=== PATIENT | female | born 1935 | race Caucasian/White ===

== ENCOUNTER 2017-10-09 09:43 | Inpatient (IN) | payer OTHER ==
--- NOTE | 2017-10-09 10:05 | PDOC ---
History of Present Illness - General History Source: Patient, Care Provider (Home health aide) Exam Limitations: No Limitations - History of Present Illness Initial Comments: 10/09/17 11:01 The patient is a 81 year old female with a significant PMH of morbid obesity, cholecystectomy and thyroid surgery who presents to the emergency department s/ p being found on the ground of her assisted living home after 2 days. The patients aide reports she and the assisted living facility last contacted the patient on Saturday but did not hear from her since Saturday afternoon. She reports that assisted living staff went to check on the patient yesterday but could not gain access to the patients apartment or check on her condition as the door was locked and the TVs volume was high. The patients aide reports she requested the lock be cut today, after which staff found the patient at the foot of her couch on the ground, soiled. The patient denies any complaints at presentation. She is unclear about the details of the past 2 days. The patient denies chest pain, shortness of breath, headache and dizziness. Denies fever, chills, nausea, vomit, diarrhea and constipation. Denies dysuria, frequency, urgency and hematuria. Allergies: NKA Past surgical history: Cholecystectomy. Thyroid surgery. Social history: No reported cigarette, alcohol, or drug use. PCP: None reported. <Guru Jackson - Last Filed: 10/13/17 05:53> - General History Source: Patient, Care Provider Exam Limitations: No Limitations <Piedad Quinn - Last Filed: 10/15/17 09:51> - General Stated Complaint: FALL NIH Stroke Scale - Last Known Well Date/Time & Onset Date Last Known Well: 10/07/17 Time Last Known Well: 09:00 - Initial Evaluation Level of consciousness: Alert Ask patient the month and their age: Answers both correctly Ask patient to open & close eyes; make fist and let go: Obeys both correctly Best gaze (horizontal eye movement): Normal Visual field testing: No visual field loss Facial paresis (Show teeth/raise eyebrows/close eyes tight): Normal symmetrical movement Motor Function: Left Arm: Normal Motor Function: Right Arm: Normal (extends arm 90 (or 45) degrees for 10 seconds without drift Motor Function: Left Leg: No effort against gravity Motor Function: Right Leg: No effort against gravity Limb Ataxia: No ataxia Sensory(Use pinprick test arms,legs,trunk,face/side to side): Normal Best language (Describe picture, name items, read sentences): No Aphasia Dysarthria (read several words): Normal articulation Extinction and Inattention: No abnormality - Total Score NIH Stroke Scale Score: 6 <Piedad Quinn - Last Filed: 10/15/17 09:51> tPA Exclusion Checklist 0-3hr - Time Elapsed Date last known well: 10/07/17 Time last known well: 09:00 Elaspsed time: 8 Day(s) and 0 Hour(s) and 45 Minutes - Thrombolytic Therapy Candidate Is the patient eligible for Thrombolytic Therapy?: No - Exclusion Criteria 0-3hr SBP greater than 185 or DBP greater than 110mmHg despite tx: No Recent IC/spinal surgery,head trauma or stroke w/in last 3mo: No Hx of previous IC hemorrhage, IC neoplasm, AVM or aneurysm: No Active internal bleeding: No Blding diathesis(low plt ct, inc PTT,INR>1.7 or use of NOAC): No Symptoms suggest subarachnoid hemorrhage: No CT demonstrates multilobar infarct(>1/3 cerebral hemiphere): No Arterial puncture at noncompressible site in previous 7 days: No - Relative Exclusion Criteria 0-3h Life expectancy <1yr/severe co-morbid illness/WRITING MANAGER on admit: No : No Patient/family refused: No Rapid improvement: No Stroke severity too mild: No Recent acute NC (w/in previous 3 months): No Seizure at onset with postictal residual neuro impairments: No Major surgery or serious trauma w/in previous 14 days: No Recent GI or hemorrhage (w/in previous 21 days): No - Ineligibility reason(s) Reasons No tPA given: Outside of window - delayed arrival <Piedad Quinn - Last Filed: 10/15/17 09:51> Past History <Guru Jackson - Last Filed: 10/13/17 05:53> <Piedad Quinn - Last Filed: 10/15/17 09:51> - Past Medical History Allergies/Adverse Reactions: Allergies Allergy/AdvReac Type Severity Reaction Status Date / Time No Known Allergies Allergy Verified 10/09/17 10:30 Home Medications: Ambulatory Orders NK [No Known Home Medication] 10/09/17 Review of Systems - Review of Systems Able to Perform ROS?: Yes Comments:: 10/09/17 11:01 GENERAL/CONSTITUTIONAL: No fever or chills. No weakness. HEAD, EYES, EARS, NOSE AND THROAT: No change in vision. No ear pain or discharge. No sore throat. CARDIOVASCULAR: No chest pain or shortness of breath. RESPIRATORY: No cough, wheezing, or hemoptysis. GASTROINTESTINAL: No nausea, vomiting, diarrhea or constipation. GENITOURINARY: No dysuria, frequency, or change in urination. MUSCULOSKELETAL: No joint or muscle swelling or pain. No neck or back pain. SKIN: No rash NEUROLOGIC: No headache, vertigo, loss of consciousness, or change in strength/ sensation. ENDOCRINE: No increased thirst. No abnormal weight change. HEMATOLOGIC/LYMPHATIC: No anemia, easy bleeding, or history of blood clots. ALLERGIC/IMMUNOLOGIC: No hives or skin allergy. <Guru Jackson - Last Filed: 10/13/17 05:53> *Physical Exam - Vital Signs Last Vital Signs Temp Pulse Resp BP Pulse Ox 97.3 F L 112 H 18 135/82 100 10/09/17 10:00 10/09/17 10:00 10/09/17 10:00 10/09/17 10:00 10/09/17 10:00 - Physical Exam Comments: 10/09/17 11:01 GENERAL: Awake, alert, and fully oriented, in no acute distress HEAD: No signs of trauma EYES: PERRLA, EOMI, sclera anicteric, conjunctiva clear ENT: Auricles normal inspection, hearing grossly normal, nares patent, oropharynx clear without exudates. Moist mucosa NECK: Normal ROM, supple, no lymphadenopathy, JVD, or masses LUNGS: Breath sounds equal, clear to auscultation bilaterally. No wheezes, and no crackles HEART: (+) Tachycardic. Regular rate and rhythm, normal S1 and S2, no murmurs, rubs or gallops ABDOMEN: Soft, nontender, normoactive bowel sounds. No guarding, no rebound. No masses EXTREMITIES: Normal ROM in upper extremities, no edema. No clubbing or cyanosis. No cords, erythema, or tenderness. No tenderness to palpation in hip. NEUROLOGICAL: Cranial nerves II through XII grossly intact. Normal speech. SKIN:(+) Large erythematous rash in skin fold beneath right breast. (+) Erythematous rash in groin. (+) Skin breakdown on right buttock. Normal turgor. <Guru Jackson - Last Filed: 10/13/17 05:53> ED Treatment Course - LABORATORY CBC & Chemistry Diagram: 10/11/17 06:15 10/11/17 06:15 - ADDITIONAL ORDERS Additional order review: 10/09/17 10:45 RBC 5.52 H MCV 85.8 MCHC 31.7 L RDW 15.7 H MPV 9.2 Neutrophils % 89.7 H Lymphocytes % 3.5 L Monocytes % 6.5 Eosinophils % 0.1 Basophils % 0.2 <Guru Jackson - Last Filed: 10/13/17 05:53> - LABORATORY CBC & Chemistry Diagram: 10/15/17 06:00 10/15/17 06:00 - RADIOLOGY Radiology Studies Ordered: Category Date Time Status CERVICAL SPINE CT W/O CONTR [CT] Stat CT Scan 10/09/17 10:[address] WITHOUT CONTRAST [CT] Stat CT Scan 10/09/17 10:04 Ordered <Piedad Quinn - Last Filed: 10/15/17 09:51> Medical Decision Making - Critical Care Time Total Critical Care Time (minutes): 60 Critical Care Statement: The care of this patient involved high complexity decision making to prevent further life threatening deterioration of the patient 's condition and/or to evaluate & treat vital organ system(s) failure or risk of failure. 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 because no one has been able to see this patient since Saturday and she requested that the chain on the door be cut Upon making entry to the home, the patient was found on the ground Pt has soiled herself On examination The patient states she has no pain at all She also states that she did not fall Tachcycardiac, regular Lungs are clear No abdominal tenderness Stool noted in patient's undergarments Inflammed erythematous skin noted in patient's skin folds Right buttock abrasion, skin break down noted No lower extremity edema or deformities Pt moves both upper extremities (when pt was asked to move her legs and could not, pt moved both upper extremities) Does not move lower extremities DD: Mechanical fall from standing, ACS, Arrhythmia, anemia ---> fall Evaluate for head trauma, c spine injury, hip fracture Will do: Labs CT Head and C spine EKG IV fluids for patient's tachycardia PT consult Anticipate admission 10/09/17 11:26 EKG: Afib,rate of 122 bpm, axis nml, t wave flattening, no st elevations or depressions, baseline artifact Will hold on anticoagulation until CT imaging done Will give IVF and Cardizem for tachycardia 10/09/17 13:36 Laboratory Tests 10/09/17 10/09/17 10/09/17 10:45 10:45 10:45 WBC 16.2 H Hgb 15.0 Hct 47.3 H Plt Count 236 Neutrophils % 89.7 H Lymphocytes % 3.5 L PT with INR 13.30 H INR 1.18 H Sodium 142 Potassium 4.4 Chloride 105 Carbon Dioxide 30 BUN 28 H Creatinine 0.9 Random Glucose 118 H Creatine Kinase 886 H Creatine Kinase Index 1.0 CK-MB (CK-2) 9.190 H Troponin I < 0.02 10/09/17 13:37 CT: Mild lucency in the Right MCA territory Can not rule out CVA Pt complained of headache Given Tylenol IV 10/09/17 13:47 Case reviewed with LENS GRINDER Burak Will admit to tele Consult to Dr Navarro Consult to Dr Shi can not anticoagulate for Afib if CVA is acute Clinical Impression: Fall, initial presentation Mild rhabdomyolisis, initial presentation New onset Afib with RVR, initial presentation ? possible CVA <Piedad Quinn - Last Filed: 10/15/17 09:51> *DC/Admit/Observation/Transfer - Attestations Scribe Attestion: 10/09/17 11:01 Documentation prepared by Guru Jackson, acting as medical payment poster for Piedad Quinn MD. <Guru Jackson - Last Filed: 10/13/17 05:53> - Discharge Dispostion Admit: Yes <Piedad Quinn - Last Filed: 10/15/17 09:51> Diagnosis at time of Disposition: New onset a-fib, Fall - Discharge Dispostion Condition at time of disposition: Stable
[2017-10-09] MEDS ORDERED: SODIUM CHLORIDE 1,000 ML IV STA (10:39)
[2017-10-09 10:53] LABS: BASO % 0.2 % (0-2.0); EOS % 0.1 % (0-4.5); HEMATOCRIT 47.3 % (32.4-45.2); LYMPH % 3.5 % (8-40); MCH 27.2 pg (25.7-33.7); MCHC 31.7 g/dl (32.0-36.0); MEAN CELL VOLUME 85.8 fl (80-96); MEAN PLT VOLUME 9.2 fl (7.5-11.1); MONO % 6.5 % (3.8-10.2); NEUT % 89.7 % (42.8-82.8); PLATELET COUNT 236 K/MM3 (134-434); RBC 5.52 M/mm3 (3.60-5.2); RDW 15.7 % (11.6-15.6); WHITE BLOOD COUNT 16.2 K/mm3 (4.0-10.0)
[2017-10-09 11:07] LABS: INR 1.18 (0.82-1.09); PROTHROMBIN TIME (PATIENT) 13.3 SEC (9.98-11.88)
[2017-10-09] MEDS ORDERED: dilTIAZem HCL 50 MG/10 ML - 10 ML VIAL IVPUSH ONE (11:22)
[2017-10-09 11:47] LABS: ALBUMIN 3.3 g/dl (3.4-5.0); ALK PHOS 112 U/L (45-117); ANION GAP 7 (8-16); BILIRUBIN,TOTAL 1.1 mg/dL (0.2-1.0); BLOOD UREA NITROGEN 28 mg/dL (7-18); CALCIUM 8.5 mg/dL (8.5-10.1); CHLORIDE 105 mmol/L (98-107); CO2 30 mmol/L (21-32); CREATININE 0.9 mg/dL (0.55-1.02); GLUCOSE,RANDOM 118 mg/dL (74-106); SGPT/ALT 33 U/L (12-78); SODIUM 142 mmol/L (136-145); TOT PROT 6.8 g/dl (6.4-8.2)
[2017-10-09 12:04] LABS: POTASSIUM 4.4 mmol/L (3.5-5.1); SGOT/AST 126 U/L (15-37)
--- NOTE | 2017-10-09 12:34 | EKG ---
Test Reason : Blood Pressure : / mmHG Vent. Rate : 122 BPM Atrial Rate : 120 BPM P-R Int : 000 ms QRS Dur : 086 ms QT Int : 282 ms P-R-T Axes : 000 011 111 degrees QTc Int : 401 ms POOR DATA QUALITY, INTERPRETATION MAY BE ADVERSELY AFFECTED ATRIAL FIBRILLATION WITH RAPID VENTRICULAR RESPONSE CANNOT RULE OUT ANTERIOR INFARCT , AGE UNDETERMINED ABNORMAL ECG NO PREVIOUS ECGS AVAILABLE Confirmed by WOODROW CABRALES, RUSS ([id number]) on 10/09/2017 12:34:32 PM Referred By: Confirmed By:RUSS TROY MD
[2017-10-09] MEDS ORDERED: dilTIAZem HCL 125 MG/25 ML - 25 ML VIAL ONE (13:01)
[2017-10-09] MEDS ORDERED: ACETAMINOPHEN 1000 MG/100 ML VIAL (NON FORMULARY) IVPB ONE (13:33)
[2017-10-09] MEDS ORDERED: ACETAMINOPHEN INJECTION 100 ML IVPB ONE (13:33)
--- NOTE | 2017-10-09 13:34 | HP ---
CHIEF COMPLAINT: On floor of apartment x 2 days PCP: None HISTORY OF PRESENT ILLNESS: The patient is a 81 year-old female with a significant PMH of morbid obesity. She has not seen a medical provider in over 40 years per her [id number] with whom this instructional writer spoke. Patient is a poor historian and the following is obtained from the medical record: patient was brought by EMS to the ED after being found on the floor of her senior housing apartment. The patient's "aide" ( does not have a home health aide per [id number]) reported she and the management of the facility last contacted the patient on Saturday morning (10/07/17 ) but did not hear from her since Saturday afternoon. The staff went to check on the patient yesterday (10/08/17) but could not gain access to the patient apartment or check on her condition as the door was locked and the TV volume was high. The "aide" reports she requested the lock be cut today, after which staff found the patient on the floor, soiled. The patient has no recollection of these events, is unaware she was on the floor for a prolonged period. Patient voices no physical complaints. Denies headache, dizziness, vision changes; denies chest pain, palpitations, SOB, MARKS, lower extremity edema; denies dysuria, frequency, urgency. Denies bleeding of any kind. ER course was notable for: (1) ECG afib @ 122bpm (2) CT head suspicious for acute/subacute left MCA infarct (3) diltiazem IVP 10mg x 1; Tylenol IVPB 1g Recent Travel: No PAST MEDICAL HISTORY: Morbid obesity PAST SURGICAL HISTORY: Cholecystectomy Thyroid surgery Social History: Smoking: no Alcohol: no Drugs: no Family History: Allergies No Known Allergies Allergy (Verified 10/09/17 10:30) HOME MEDICATIONS: Home Medications Medication Instructions Recorded NK [No Known Home Medication] 10/09/17 REVIEW OF SYSTEMS Unable to obtain from patient PHYSICAL EXAMINATION Vital Signs - 24 hr 10/09/17 10/09/17 10:00 13:09 Temperature 97.3 F L Pulse Rate 112 H Pulse Rate [ 107 H Apical] Respiratory 18 24 Rate Blood Pressure 135/82 Blood Pressure 148/82 [Right Arm] O2 Sat by Pulse 100 2 L Oximetry (%) GENERAL: Awake, A&O x 1. In no acute distress. Morbidly obese, estimate ~500 pounds. NEUROLOGICAL: Flattening of the right nasolabial fold. EOMI. Normal speech. Moves all extremities freely. HEAD: Normal with no signs of trauma. EYES: Pupils equal, round and reactive to light, extraocular movements intact, sclera anicteric, conjunctiva clear. No lid lag. EARS, NOSE, THROAT: Edentulous. Ears normal, nares patent, oropharynx clear without exudates. Dry mucous membranes. NECK: Normal range of motion, no JVD LUNGS: Distant breath sounds due to body habitus. HEART: Irregular, S1, S2 ABDOMEN: Enormous pannus; soft MUSCULOSKELETAL: Unable to assess, resists exam UPPER EXTREMITIES: 2+ pulses, warm, well-perfused. No cyanosis. No clubbing. No peripheral edema. LOWER EXTREMITIES: 2+ pulses, warm, well-perfused. No calf tenderness. No peripheral edema. SKIN: Right buttock: two Stage II pressure ulcers, one superior, one inferior Left buttock: two Stage II pressure Laboratory Results - last 24 hr 10/09/17 10/09/17 10/09/17 10:45 10:45 10:45 WBC 16.2 H RBC 5.52 H Hgb 15.0 Hct 47.3 H MCV 85.8 MCH 27.2 MCHC 31.7 L RDW 15.7 H Plt Count 236 MPV 9.2 Neutrophils % 89.7 H Lymphocytes % 3.5 L Monocytes % 6.5 Eosinophils % 0.1 Basophils % 0.2 PT with INR 13.30 H INR 1.18 H Sodium 142 Potassium 4.4 Chloride 105 Carbon Dioxide 30 Anion Gap 7 L BUN 28 H Creatinine 0.9 Creat Clearance w eGFR 59.80 Random Glucose 118 H Calcium 8.5 Total Bilirubin 1.1 H AST 126 H ALT 33 Alkaline Phosphatase 112 Creatine Kinase 886 H Creatine Kinase Index 1.0 CK-MB (CK-2) 9.190 H Troponin I < 0.02 Total Protein 6.8 Albumin 3.3 L Imaging 10/09 CT head: mild lucency left MCA suspicious for acute/subacute infarct 10/09 CT c-spine: C6-C7 moderate left paracentral disc herniation and posterior spur formation likely impinging cord 10/09 CXR: unremarkable 10/09 Xray hip/pelvis: ASSESSMENT/PLAN: 81 year old female with a significant PMH of morbid obesity, cholecystectomy and thyroid surgery found on floor of apartment after two days. Morbid obesity --needs accurate weight Unwitnessed fall --imaging negative for fractures Atrial fibrillation with RVR --newly diagnosed --cardizem 30mg q6h --no anticoagulation for now pending stroke workup, discussed with Dr. Jeffries ; he will view CT images this evening and advise --cardiology consult Syncope r/o left MCA infarct cardiac: --serial troponins and ECGs --Echo --US carotids ordered neuro: --CT head suspicious for left MCA acute/subacute infarct --MRI/MRA brain with and w/o contrast ordered but machine may not accommodate patient's body habitus --neuro consult vascular: --toes are slightly dusky and cool, concern for emboli although DP pulses are 2+ easily palpable; concern for DVT --b/l LE arterial and vascular duplex studies ordered --vascular consult Rhabdomyolysis --CPK 886-->915 --renal function stable --IV fluids Leukocytosis --may be reactive --afebrile, no clinical signs of infection --no antibiotics for now Cervical disc herniation --workup when more stable; may be chronic? 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 Consider transferring to [facility] where there is physical therapy for bariatric patients. Dispo: Patient has two sons. Deya Macias ([phone]), her daughter in law , lives in [place] and will be flying to [place]. Patient's POA and HCP is a friend, Linda Julio who lives on [address] in [place] ([phone]). Ms. Macias has had conversations with patient in past in which patient indicated she was DNR, but she does not have a copy of any paperwork. . Sumanth will need to be contacted. In terms of discharge, Ms. Macias last visited patient in her apartment in July 2017. The apartment was covered in urine and feces. The patient has not used a toilet in over 20 years. She voids and defecates on towels. Food is delivered and she is able to eat microwaveable meals. Friends deliver food as well. Advised Ms. Macias that patient will not be able to return to her apartment and she should start thinking about placement. Visit type - Emergency Visit Emergency Visit: Yes ED Registration Date: 10/09/17 Care time: The patient presented to the Emergency Department on the above date and was hospitalized for further evaluation of their emergent condition. - New Patient This patient is new to me today: Yes Date on this admission: 10/09/17 - Critical Care Critical Care patient: Yes Total Critical Care Time (in minutes): 90 Critical Care Statement: The care of this patient involved high complexity decision making to prevent further life threatening deterioration of the patient 's condition and/or to evaluate & treat vital organ system(s) failure or risk of failure.
[2017-10-09] MEDS ORDERED: SODIUM CHLORIDE 500 ML IV STA (15:07)
--- NOTE | 2017-10-09 16:51 | CON.CARD ---
Consult Consult Specialty:: Cardiology Referred by:: kenneth Sumner Reason for Consultation:: afib - History of Present Illness Chief Complaint: found on the floor History of Present Illness: 81 year old with a pmhx of obesity, cholecystectomy, and thyroid surgery comes to ER after being found on the floor for possibly 2 days. Patient is confused and thinks she is at home and cannot give assesment of what happened. Unclear what led to her ending up on the floor. She denies any chest pain, palpitations , or sob. +pain to LE. Noted to have elevated CPK EKG with afib VR 122bpm CT head unclear if CVA or artifact in left MCA territory. - History Source History Provided By: Family Member, Medical Record - Alcohol/Substance Use Hx Alcohol Use: No - Smoking History Smoking history: Never smoked Have you smoked in the past 12 months: No Home Medications - Allergies Allergies/Adverse Reactions: Allergies Allergy/AdvReac Type Severity Reaction Status Date / Time No Known Allergies Allergy Verified 10/09/17 10:30 - Home Medications Home Medications: Ambulatory Orders NK [No Known Home Medication] 10/09/17 Vital Signs: Vital Signs Temperature 97.3 F L 10/09/17 10:00 Pulse Rate 118 H 10/09/17 15:39 Respiratory Rate 18 10/09/17 15:39 Blood Pressure 144/88 10/09/17 15:39 O2 Sat by Pulse Oximetry (%) 99 10/09/17 15:39 Constitutional: Yes: Other (confused) Neck: Yes: Supple Respiratory: Yes: CTA Bilaterally Gastrointestinal: Yes: Soft Cardiovascular: Yes: Pulse Irregular JVD: No Carotid Bruit: No PMI: Non-Displaced Heart Sounds: Yes: S1, S2 Extremities: Yes: Other (bluish, cold toes b/l feet but greater on left. +1 DP' s). No: WNL Edema: LLE: 1+, RLE: 1+ - Other Data Labs, Other Data: CBC, BMP 10/09/17 10:45 10/09/17 10:45 INR, PTT INR 1.18 (0.82-1.09) H 10/09/17 10:45 Troponin, BNP 10/09/17 10/09/17 10:45 14:08 Troponin I < 0.02 < 0.02 Troponin, BNP 10/09/17 10/09/17 10:45 14:08 Troponin I < 0.02 < 0.02 Imaging - Results Chest X-ray: Report Reviewed EKG: Image Reviewed Assessment/Plan 81 year old with a pmhx of obesity, cholecystectomy, and thyroid surgery comes to ER after being found on the floor for possibly 2 days. Patient is confused and thinks she is at home and cannot give assesment of what happened. Unclear what led to her ending up on the floor. She denies any chest pain, palpitations , or sob. +pain to LE. Noted to have elevated CPK EKG with afib VR 122bpm CT head unclear if CVA or artifact in left MCA territory. 1) Afib unclear if any history of Afib Would treat with heparin IV if no concern for acute stroke and no contraindication. IVF's given dehydration and will likely assist with HR. If HR remains elevated than, diltiazem 30mg po q6 Echocardiogram lytes and tfts -On exam, patient with bluish, cold toes on both feet greater on left. Informed ER attending. Would have surgery/vascular evaluate to ensure no arterial emboli and if there are than need to consider AC.
[2017-10-09] MEDS ORDERED: HEPARIN NA (PORCINE) 5,000 UNITS/ML 1ML VIAL SQ SCH (18:00)
[2017-10-09 18:09] VITALS: BMI 62.9
[2017-10-09 18:27] LABS: ALLENS TEST POSITIVE; ARTERIAL BLOOD GAS BASE EXCESS 1.5 meq/l (-2-2); ARTERIAL BLOOD GAS PCO2 45.8 mmHg (35-45); ARTERIAL BLOOD GAS PO2 88.1 mmHg (68-100)
--- NOTE | 2017-10-09 21:20 | CON.NEURO ---
Consult Reason for Consultation:: Possible stroke - History of Present Illness History of Present Illness: The patient is a 81 year-old female with a significant PMH of morbid obesity. She has not seen a medical provider in over 40 years per her [id number] with whom this global technical writer spoke. Patient is a poor historian and the following is obtained from the medical record: patient was brought by EMS to the ED after being found on the floor of her senior housing apartment. The patient's "aide" ( does not have a home health aide per [id number]) reported she and the management of the facility last contacted the patient on Saturday morning (10/07/17 ) but did not hear from her since Saturday afternoon. The staff went to check on the patient yesterday (10/08/17) but could not gain access to the patient apartment or check on her condition as the door was locked and the TV volume was high. The "aide" reports she requested the lock be cut today, after which staff found the patient on the floor, soiled. The patient has no recollection of these events, is unaware she was on the floor for a prolonged period. Patient voices no physical complaints. Denies headache, dizziness, vision changes; denies chest pain, palpitations, SOB, MARKS, lower extremity edema; denies dysuria, frequency, urgency. Denies bleeding of any kind. -Ms. Kenyon reports she has no recollection of events, was able to ambulate at home and that she is having some difficulty with comprehension when i pointed this out to her. Denies all other neurologic complaints, states"i dont know why i cant mopve my legs. Denies urinary incontinence. ER course was notable for: (1) ECG afib @ 122bpm (2) CT head suspicious for acute/subacute left MCA infarct (3) diltiazem IVP 10mg x 1; Tylenol IVPB 1g - History Source History Provided By: Patient - Alcohol/Substance Use Hx Alcohol Use: No - Smoking History Smoking history: Never smoked Have you smoked in the past 12 months: No Home Medications - Allergies Allergies/Adverse Reactions: Allergies Allergy/AdvReac Type Severity Reaction Status Date / Time No Known Allergies Allergy Verified 10/09/17 10:30 - Home Medications Home Medications: Ambulatory Orders NK [No Known Home Medication] 10/09/17 Physical Exam-Neuro Vital Signs: Vital Signs Temperature 98.1 F 10/09/17 20:53 Pulse Rate 115 H 10/09/17 20:53 Respiratory Rate 22 10/09/17 20:53 Blood Pressure 153/98 10/09/17 20:53 O2 Sat by Pulse Oximetry (%) 100 10/09/17 20:53 Labs: CBC, BMP 10/09/17 10:45 10/09/17 10:45 INR, PTT INR 1.18 (0.82-1.09) H 10/09/17 10:45 - Neuro Exam Level Of Consciousness: Yes: Alert, Oriented to Person, Oriented to Place (not oriented to time/day/date) Eyes: Yes: APOLLO Speech: Wernicke's Aphasia (Mild impaired comprehension+ paraphasic errors-she has a mild sensory aphasia) Dominant Hand: Right Mini Mental Exam: Impaired attention/concentration Cranial Nerves II-XII Intact: Yes (mild diminished right NLF) Babinski: Present (bilateral upgpoing toes) Response to light touch: Normal Response to pain prick: Normal (rest of sensory modalities not tested) Coordination: Normal: Finger to Nose (normal F-N) Motor Strength: 1/5: Left Leg, Right Leg, 5/5: Left Arm, Right Arm (No drift) Gait: Other (unable to stand) Imaging - Results X-ray: Report Reviewed (Imaging 10/09 CT head: mild lucency left MCA suspicious for acute/subacute infarct 10/09 CT c-spine: C6-C7 moderate left paracentral disc herniation and posterior spur formation likely impinging cord 10/09 CXR: unremarkable -To my exam CT head has patchy hypodensities of indeterminate age in left parietal region.) Assessment/Plan Pt. found on floor, with new onset Afib and possible left MCA territory infarct and has paraparesis that is new. Given new onset Afib the left parietal hypodensity is most likely a new infarct, she has minimal clinical findings ascribable to this vascular distribution-(Wernickes aphasia, mild).The infarct may be radiologically large to preclude anticoagulation, due to her habitus she cannot have a MRI, would repeat CT head now to gauge the extent ofpossible stroke-if it is large would wait to a/c, if not would proceed with a/c. Paraparesis and urinary incontinence, bilateral upgoing toes-?? ant. spinal artery occlusion, rhabdomyolysis/compartment syndrome(less likely)-. Suggest: Cont. ASA 325mg x 1 than 81mg daily if no contraindications Repeat CT head now Carotid duplex as planned a/c with heparin if not contraindicated after CT head. Thank you, Eliel Jeffries MD [phone]
--- NOTE | 2017-10-09 22:42 | PN ---
Progress Note (short form) - Note Progress Note: Pt. is not c/o neck/back pain but given paraparesis/brisk knee jerks and upgoing toes/incontinence would obtain CT C/T spine to r/o com[pressive myelopathy
[2017-10-09] MEDS ORDERED: ASPIRIN 325 MG TABLET PO ONE (22:45)
[2017-10-09] MEDS ORDERED: AMMONIUM LACTATE 12% LOTION 225 GM BOTTLE TP PRN (23:44)
[2017-10-10] MEDS ORDERED: PT OWN MED DRAWER 7, Y5N ONE ×2 (06:00→10:39)
[2017-10-10] MEDS: dilTIAZem HCL 30 MG TABLET (FP) PO SCH ×2 (06:03)
[2017-10-10 06:42] LABS: BASO % 0.4 % (0-2.0); EOS % 0.9 % (0-4.5); HEMATOCRIT 41.3 % (32.4-45.2); HEMOGLOBIN 13.4 GM/dL (10.7-15.3); LYMPH % 9.5 % (8-40); MCHC 32.4 g/dl (32.0-36.0); MEAN CELL VOLUME 86.2 fl (80-96); MEAN PLT VOLUME 9.3 fl (7.5-11.1); MONO % 10.2 % (3.8-10.2); PLATELET COUNT 211 K/MM3 (134-434); RBC 4.79 M/mm3 (3.60-5.2); RDW 16.1 % (11.6-15.6); WHITE BLOOD COUNT 10.8 K/mm3 (4.0-10.0)
[2017-10-10 07:12] LABS: CHLORIDE 109 mmol/L (98-107); POTASSIUM 4.3 mmol/L (3.5-5.1); SODIUM 144 mmol/L (136-145)
--- NOTE | 2017-10-10 07:17 | HOSP ---
Physical Examination Vital Signs: Vital Signs Temperature 98.3 F 10/10/17 02:14 Pulse Rate 102 H 10/10/17 02:14 Respiratory Rate 22 10/10/17 02:14 Blood Pressure 142/71 10/10/17 02:14 O2 Sat by Pulse Oximetry (%) 98 10/09/17 23:00 Hospitalist Encounter Assessment: Had discussion with Dr. Jeffries regarding CT results. Given size of infarct on CT he would not advise anticoagulation at this time, only ASA. He recommended ASA 325mg now followed by ASA 81 daily. He also recommended CT of cspine and tspine.
[2017-10-10 07:23] LABS: ALBUMIN 2.7 g/dl (3.4-5.0); ALK PHOS 87 U/L (45-117); ANION GAP 6 (8-16); BILIRUBIN,TOTAL 0.9 mg/dL (0.2-1.0); BLOOD UREA NITROGEN 24 mg/dL (7-18); CALCIUM 7.7 mg/dL (8.5-10.1); CO2 29 mmol/L (21-32); CREATININE 0.6 mg/dL (0.55-1.02); GLUCOSE,RANDOM 85 mg/dL (74-106); PHOSPHOROUS 3.5 mg/dL (2.5-4.9); SGOT/AST 101 U/L (15-37); SGPT/ALT 28 U/L (12-78); TOT PROT 5.5 g/dl (6.4-8.2)
--- NOTE | 2017-10-10 08:34 | PN ---
Progress Note (short form) - Note Progress Note: Ms. Tan today has a more prominent aphasia with fluent speech, impaired comprehernsion and paraphasic errors. She denies back pain, has urinary incontinence and 1/5 weakness in both legs. Would hold a/c for now given evolving, now clinically large right MCA territory infarct.+ bilateral dorsalis pedis pulses. -Await CT C/T spine-no explanation for paraparesis?/ ant. spinal artery occlusion.
[2017-10-10] MEDS: NYSTATIN POWDER 100,000 UNITS/GM - 15 GM TOPICAL POWDER TP SCH (11:04)
[2017-10-10] MEDS: NYSTATIN 100,000 UNIT/GM TOPICAL CREAM 15 GM TUBE TP SCH ×2 (11:05→21:49)
[2017-10-10] MEDS: ASPIRIN COATED 81 MG TABLET.EC PO SCH (11:06)
--- NOTE | 2017-10-10 11:47 | EKG ---
Test Reason : Blood Pressure : / mmHG Vent. Rate : 104 BPM Atrial Rate : 106 BPM P-R Int : 000 ms QRS Dur : 070 ms QT Int : 342 ms P-R-T Axes : 000 000 262 degrees QTc Int : 449 ms ATRIAL FIBRILLATION WITH RAPID VENTRICULAR RESPONSE NONSPECIFIC ST AND T WAVE ABNORMALITY ABNORMAL ECG WHEN COMPARED WITH ECG OF 09-OCT-2017 11:20, NONSPECIFIC T WAVE ABNORMALITY, WORSE IN ANTERIOR LEADS Confirmed by PAT CABRALES, ROHITH ([id number]) on 10/10/2017 11:46:50 AM Referred By: Confirmed By:ROHITH STEWART MD
--- NOTE | 2017-10-10 12:24 | PN ---
Progress Note (short form) - Note Progress Note: Subjective: The patient was seen and examined at the bedside, she reports feeling more alert today. She states she feeling "really good" Current Medications Generic Name Dose Route Start Last Admin Trade Name Chandrika PRN Reason Stop Dose Admin Aspirin 81 mg 10/10/17 10:00 10/10/17 11:06 Ecotrin - PO 81 mg DAILY KELLEN Administration Diltiazem HCl 30 mg 10/10/17 00:00 10/10/17 06:03 Cardizem - PO 30 mg Q6HPO KELLEN Administration Lactic Acid 1 applic 10/09/17 23:44 10/10/17 11:06 Lac-Hydrin 12 TP 1 applic BID PRN Administration DRY SKIN Nystatin 1 applic 10/10/17 10:00 10/10/17 11:05 Mycostatin Cream - TP 1 applic BID KELLEN Administration Nystatin 1 applic 10/10/17 10:00 10/10/17 11:04 Nystop Powder - TP 1 applic DAILY KELLEN Administration Objective: Vital Signs Period Temp Pulse Resp BP Sys/Garcia Pulse Ox Last 24 Hr 98.1 F-98.6 F 102-118 18-24 142-160/71-98 2-100 Physical Exam: General: NAD, A&Ox (2-3, self, place, time-knows 2017, thinks it is November) Lungs: Decreased breath sounds anteriorly Heart: Irregular, S1S2 Abd: Refused exam Ext: B/l lower extremity edema with venous changes CBCD WBC 10.8 K/mm3 (4.0-10.0) H D 10/10/17 05:40 RBC 4.79 M/mm3 (3.60-5.2) 10/10/17 05:40 Hgb 13.4 GM/dL (10.7-15.3) D 10/10/17 05:40 Hct 41.3 % (32.4-45.2) 10/10/17 05:40 MCV 86.2 fl (80-96) 10/10/17 05:40 MCHC 32.4 g/dl (32.0-36.0) 10/10/17 05:40 RDW 16.1 % (11.6-15.6) H 10/10/17 05:40 Plt Count 211 K/MM3 (134-434) 10/10/17 05:40 MPV 9.3 fl (7.5-11.1) 10/10/17 05:40 CMP Sodium 144 mmol/L (136-145) 10/10/17 05:40 Potassium 4.3 mmol/L (3.5-5.1) 10/10/17 05:40 Chloride 109 mmol/L (98-107) H 10/10/17 05:40 Carbon Dioxide 29 mmol/L (21-32) 10/10/17 05:40 Anion Gap 6 (8-16) L 10/10/17 05:40 BUN 24 mg/dL (7-18) H 10/10/17 05:40 Creatinine 0.6 mg/dL (0.55-1.02) 10/10/17 05:40 Creat Clearance w eGFR > 60 (>60) 10/10/17 05:40 Random Glucose 85 mg/dL (74-106) 10/10/17 05:40 Calcium 7.7 mg/dL (8.5-10.1) L 10/10/17 05:40 Total Bilirubin 0.9 mg/dL (0.2-1.0) 10/10/17 05:40 AST 101 U/L (15-37) H 10/10/17 05:40 ALT 28 U/L (12-78) 10/10/17 05:40 Alkaline Phosphatase 87 U/L (45-117) 10/10/17 05:40 Total Protein 5.5 g/dl (6.4-8.2) L 10/10/17 05:40 Albumin 2.7 g/dl (3.4-5.0) L 10/10/17 05:40 CARDIAC ENZYMES Creatine Kinase 502 IU/L (26-192) H 10/10/17 05:40 Troponin I < 0.02 ng/ml (0.00-0.05) 10/09/17 14:08 Assessment: This is an 81 year old female with PMHx of morbid obesity, cholecystectomy, thyroid surgery, who presented to the ED after being found on the floor of her apartment for 2 days. Plan: 1) Large right MCA territory infarct - CT head x2: possible diminished corticomedullary differentiation within the left frontoparietal lobe at the mid convexity level - Unable to perform MRI due to patient's body habitus - Continue ASA 81mg daily - Will hold off on anticoagulation at this time given how large infarct is - Carotid doppler: limited exam. Left internal and external carotid arteries could not be well visualized. The extracranial right carotid artery with no doppler evidence of high grade stenosis. Patent right vertebral artery. Left vertebral body could not be definitely visualized - ECHO: normal LV size and function. Left atrium is moderately dilated. Right atrium is moderately dilated. Moderate TR. RVSP is elevated. - F/u swallow evaluation - PT - Appreciate neuro consult - Appreciate cardiology consult 2) New onset a.fib - Ideally would need anticoagulation, however contraindicated now per neuro - Continuous cardiac monitoring - Continue cardizem 3) Rhabdomyolysis - Continue to monitor - Trending down - Hold statin until CPK wnl 4) Slightly dusky, cool toes - B/l lower extremity doppler negative for DVT - B/l lower extremity arterial duplex limited with no evidence of occlusions or hemodynamically significant stenoses - F/u vascular surgery consult 5) F/E/N: - Swallow eval per CVA protocol - Sodium controlled diet - Monitor electrolytes 6) Prophylaxis: - Hold all chemical anticoagulation at this time per neurology 7) Dispo: - Requires continued inpatient care CODE STATUS: FULL CODE Visit type - Emergency Visit Emergency Visit: Yes ED Registration Date: 10/09/17 Care time: The patient presented to the Emergency Department on the above date and was hospitalized for further evaluation of their emergent condition. - New Patient This patient is new to me today: Yes Date on this admission: 10/10/17 - Critical Care Critical Care patient: No
--- NOTE | 2017-10-10 13:14 | PN ---
Progress Note, Physician Chief Complaint: Tele: afib rates around 100bpm No chest pain, sob, or palpitations Monitoring for CVA History of Present Illness: 81 year old with a pmhx of obesity, cholecystectomy, and thyroid surgery comes to ER after being found on the floor for possibly 2 days. Patient is confused and thinks she is at home and cannot give assesment of what happened. Unclear what led to her ending up on the floor. She denies any chest pain, palpitations , or sob. +pain to LE. Noted to have elevated CPK EKG with afib VR 122bpm CT head unclear if CVA or artifact in left MCA territory. - Current Medication List Current Medications: Active Medications Aspirin (Ecotrin -) 81 mg PO DAILY [facility] Last Admin: 10/10/17 11:06 Dose: 81 mg Diltiazem HCl (Cardizem -) 30 mg PO Q6HPO [facility] Last Admin: 10/10/17 06:03 Dose: 30 mg Lactic Acid (Lac-Hydrin 12) 1 applic TP BID PRN PRN Reason: DRY SKIN Last Admin: 10/10/17 11:06 Dose: 1 applic Nystatin (Mycostatin Cream -) 1 applic TP BID [facility] Last Admin: 10/10/17 11:05 Dose: 1 applic Nystatin (Nystop Powder -) 1 applic TP DAILY [facility] Last Admin: 10/10/17 11:04 Dose: 1 applic - Objective Vital Signs: Vital Signs Temperature 98.6 F 10/10/17 12:58 Pulse Rate 113 H 10/10/17 12:58 Respiratory Rate 22 10/10/17 12:58 Blood Pressure 142/90 10/10/17 12:58 O2 Sat by Pulse Oximetry (%) 98 10/09/17 23:00 Constitutional: Yes: No Distress Neck: Yes: Supple Cardiovascular: Yes: Pulse Irregular, S1, S2 Respiratory: Yes: CTA Bilaterally Gastrointestinal: Yes: Soft Extremities: Yes: Other (Bluishness of feet much improved) Edema: LLE: Trace, RLE: Trace Labs: CBC, BMP 10/10/17 05:40 10/10/17 05:40 INR, PTT INR 1.18 (0.82-1.09) H 10/09/17 10:45 Assessment/Plan 81 year old with a pmhx of obesity, cholecystectomy, and thyroid surgery comes to ER after being found on the floor for possibly 2 days. Patient is confused and thinks she is at home and cannot give assesment of what happened. Unclear what led to her ending up on the floor. She denies any chest pain, palpitations , or sob. +pain to LE. Noted to have elevated CPK EKG with afib VR 122bpm CT head unclear if CVA or artifact in left MCA territory. 1) Afib unclear if any history of Afib Given recent L MCA stroke anticoagulation on hold. Start on AC when ok with neurology HR improved on diltiazem 30mg po q6 compared to yesterday. Would increase to 60mg q6 if needs to Echocardiogram lytes and tfts
--- NOTE | 2017-10-10 14:03 | CONSULT ---
Admitting History and Physical - Primary Care Physician PCP: Roxane Banda - Admission History of Present Illness: 81 year old female with a significant PMH of morbid obesity, cholecystectomy and thyroid surgery found on floor of apartment after two days. Selected Entries 10/10/17 10/10/17 10/10/17 02:14 09:38 12:58 Breakfast 100% Lunch Temperature 98.3 F 98.6 F 10/10/17 13:17 Breakfast Lunch 75% Temperature Laboratory Tests 10/09/17 10/10/17 10:45 05:40 WBC 16.[address] head possible left MCA territory. History Source: Patient, Transfer Record Limitations to Obtaining History: No Limitations, Other (BOIS FORTE) - Past Medical History ...: No - Smoking History Smoking history: Never smoked Have you smoked in the past 12 months: No - Alcohol/Substance Use Hx Alcohol Use: No History - Admission Reason For Visit: NEW ONSET AFIB - Diagnostics X-ray: Report Reviewed CT Scan: Report Reviewed - General Mental Status: Alert and Oriented, Awake and Alert, Able to Follow Commands Attention: Intact Ability to Follow Directions: Excellent Head/Neck Control: WFL - Hearing Hearing: Impaired (asks for frequent repetition.Quite BOIS FORTE.) Hearing Aide: No With Patient: No Speech Evaluation - Communication Primary Language: YEMENI Communication: Yes: Within Normal Limits Oral Expression Ability: Yes: No Impairment (Limited assessments as pt going of the floor, however, expressive language seemed unimpaired.) - Speech Production Able to Make Needs Known: Yes: WNL Intelligibility: Yes: WNL - Speech Characteristics Voice Loudness: Normal Voice Pitch: Yes: Normal Voice Phonatory-based Quality: Yes: Normal Speech Pattern: Normal Speech Clarity: < 100% Nasal Resonance: Normal Articulation: Yes: Precise Rate of Speech: Intact - Language/Auditory Comprehension Follows: Yes: Complex Commands Observation: Able to respond to yes/no queries: Yes, Yes/No Confusion: No, Comprehends Conversational Speech: Yes (BOIS FORTE,Needs increased volume), Benefits from Repetiton: Yes, Benefits from Increased Volume of Speech: Yes - Language/Verbal Expression Able to Respond to Simple Queries: Yes: WNL Able to Communicate Wants and Needs: Yes: WNL Functional Communication Status: Yes: WNL Attention: Yes: Intact - Swallow Evaluation/Bedside Assessment Current Nutritional Intake: Regular, Thin Liquids Oral Secretions: Yes: WFL Dentition: Yes: Edentulous Facial Symmetry at Rest: Symmetrical Facial Symmetry on Retraction: Symmetrical Against Resistance Opening: Normal Against Resistance Closing: Normal Pucker Lips: Normal Smile: Normal Lingual Movement: Normal Lingual Speed of Movement: Normal Lingual Movement Strgth Against Opposition: Normal Lingual Movement Characteristics: Normal Velopharyngeal Movement: Normal Laryngeal Elevation: WFL Laryngeal Movement: Able to Palpate Rate of Intake: WFL Bolus Size: WFL Chewing: WFL (chews steak with gums.) Oral Prep Time: WFL A-P Transit: WFL Pocketing: None Timing of Swallow: WFL Coughing/Throat Clear: No Change in Voice: No Recommendations - Speech Evaluation, Impression/Plan Impression: BOIS FORTE, but follows complex auditory commands,speaks in sentences, names, repeats. o x 3 (although initially said "home" but corrected self later in assessment). Swallowing intact. - Dysphagia Impressions/Plan Swallowing Skills: WFL Dysphagia Impressions: No Impairment *Silent aspiration: cannot be R/O at bedside - Recommendations Diet Consistency: Regular (soft? Edentulous) Medication Administration: Whole with water Liquids: Thin Liquids
--- NOTE | 2017-10-10 14:08 | PN ---
Progress Note (short form) - Note Progress Note: Vascular Surgery Pt seen and examined. Doing well. Feels better today. Bl feet nice and pink. Good cap refill in toes. Pt has bl DP pulses. Doing much better. Cont medical management. David Balderas DO
[2017-10-11] MEDS: dilTIAZem HCL 30 MG TABLET (FP) PO SCH ×4 (00:45→17:45)
[2017-10-11 06:37] LABS: HEMATOCRIT 39.4 % (32.4-45.2); HEMOGLOBIN 12.5 GM/dL (10.7-15.3); MCH 27.6 pg (25.7-33.7); MCHC 31.8 g/dl (32.0-36.0); MEAN CELL VOLUME 86.8 fl (80-96); MEAN PLT VOLUME 9.4 fl (7.5-11.1); PLATELET COUNT 195 K/MM3 (134-434); RBC 4.54 M/mm3 (3.60-5.2); WHITE BLOOD COUNT 7.9 K/mm3 (4.0-10.0)
[2017-10-11 08:25] LABS: ALBUMIN 2.4 g/dl (3.4-5.0); ALK PHOS 78 U/L (45-117); ANION GAP 8 (8-16); BILIRUBIN,TOTAL 0.7 mg/dL (0.2-1.0); BLOOD UREA NITROGEN 16 mg/dL (7-18); CALCIUM 7.5 mg/dL (8.5-10.1); CHLORIDE 106 mmol/L (98-107); CHOLESTEROL 109 mg/dL (50-200); CO2 29 mmol/L (21-32); CREATININE 0.5 mg/dL (0.55-1.02); GLUCOSE,RANDOM 92 mg/dL (74-106); HDL CHOLESTEROL 39 mg/dL (40-60); LDL CHOLESTEROL (ONLY SJRH) 60 mg/dL (5-100); POTASSIUM 3.9 mmol/L (3.5-5.1); SGOT/AST 75 U/L (15-37); SGPT/ALT 21 U/L (12-78); SODIUM 143 mmol/L (136-145); TOT PROT 5.2 g/dl (6.4-8.2); TRIGLYCERIDES 94 mg/dL (35-160)
[2017-10-11] MEDS: ASPIRIN COATED 81 MG TABLET.EC PO SCH (10:05)
[2017-10-11] MEDS: NYSTATIN 100,000 UNIT/GM TOPICAL CREAM 15 GM TUBE TP SCH ×2 (10:06→21:07)
[2017-10-11] MEDS: NYSTATIN POWDER 100,000 UNITS/GM - 15 GM TOPICAL POWDER TP SCH (10:06)
--- NOTE | 2017-10-11 11:03 | PN ---
Progress Note, LOGISTICS SOLUTION MANAGER - Note Progress Note: Selected Entries 10/11/17 10/11/17 10/11/17 00:26 04:24 04:31 Breakfast Lunch Temperature 97.9 F 97.6 F 97.8 F 10/11/17 10/11/17 10/11/17 08:47 09:53 10:05 Breakfast 50% Lunch 50% Temperature 98.2 F 98 F Laboratory Tests 10/11/17 06:15 WBC 7.9 Speech/language/swallowing/cognition intact. Good historian. Tolerating diet.
--- NOTE | 2017-10-11 14:02 | PN ---
Progress Note, Physician Chief Complaint: No chest pain, palpitations, or sob Tele: Afib 90s History of Present Illness: 81 year old with a pmhx of obesity, cholecystectomy, and thyroid surgery comes to ER after being found on the floor for possibly 2 days. Patient is confused and thinks she is at home and cannot give assesment of what happened. Unclear what led to her ending up on the floor. She denies any chest pain, palpitations , or sob. +pain to LE. Noted to have elevated CPK EKG with afib VR 122bpm CT head unclear if CVA or artifact in left MCA territory. - Current Medication List Current Medications: Active Medications Aspirin (Ecotrin -) 81 mg PO DAILY [facility] Last Admin: 10/11/17 10:05 Dose: 81 mg Diltiazem HCl (Cardizem -) 30 mg PO Q6HPO [facility] Last Admin: 10/11/17 11:36 Dose: 30 mg Lactic Acid (Lac-Hydrin 12) 1 applic TP BID PRN PRN Reason: DRY SKIN Last Admin: 10/10/17 11:06 Dose: 1 applic Nystatin (Mycostatin Cream -) 1 applic TP BID [facility] Last Admin: 10/11/17 10:06 Dose: 1 applic Nystatin (Nystop Powder -) 1 applic TP DAILY [facility] Last Admin: 10/11/17 10:06 Dose: 1 applic - Objective Vital Signs: Vital Signs Temperature 98 F 10/11/17 09:53 Pulse Rate 96 H 10/11/17 08:47 Respiratory Rate 31 H 10/11/17 08:47 Blood Pressure 157/83 10/11/17 08:47 O2 Sat by Pulse Oximetry (%) 98 10/11/17 08:47 Constitutional: Yes: No Distress Cardiovascular: Yes: Pulse Irregular, S1, S2. No: JVD Respiratory: Yes: CTA Bilaterally Gastrointestinal: Yes: Soft Edema: LLE: Trace, RLE: Trace Labs: CBC, BMP 10/11/17 06:15 10/11/17 06:15 INR, PTT INR 1.18 (0.82-1.09) H 10/09/17 10:45 Assessment/Plan 81 year old with a pmhx of obesity, cholecystectomy, and thyroid surgery comes to ER after being found on the floor for possibly 2 days. Patient is confused and thinks she is at home and cannot give assesment of what happened. Unclear what led to her ending up on the floor. She denies any chest pain, palpitations , or sob. +pain to LE. Noted to have elevated CPK EKG with afib VR 122bpm CT head unclear if CVA or artifact in left MCA territory. 1) Afib Given recent L MCA stroke anticoagulation on hold. Start on AC when ok with neurology HR improved on diltiazem 30mg po q6. Would change to long acting tomorrow diltiazem 180mg daily and can uptitrate further if needed. Echocardiogram normal LVEF and no severe valve disease. custodial as an outpt when started on AC can start on NOAC. Please call back if needed
--- NOTE | 2017-10-11 18:02 | PN ---
Progress Note (short form) - Note Progress Note: Subjective: The patient was seen and examined at the bedside, she reports feeling more alert today. She states she feeling "really good" Current Medications Generic Name Dose Route Start Last Admin Trade Name Chandrika PRN Reason Stop Dose Admin Aspirin 81 mg 10/10/17 10:00 10/10/17 11:06 Ecotrin - PO 81 mg DAILY KELLEN Administration Diltiazem HCl 30 mg 10/10/17 00:00 10/10/17 06:03 Cardizem - PO 30 mg Q6HPO KELLEN Administration Lactic Acid 1 applic 10/09/17 23:44 10/10/17 11:06 Lac-Hydrin 12 TP 1 applic BID PRN Administration DRY SKIN Nystatin 1 applic 10/10/17 10:00 10/10/17 11:05 Mycostatin Cream - TP 1 applic BID KELLEN Administration Nystatin 1 applic 10/10/17 10:00 10/10/17 11:04 Nystop Powder - TP 1 applic DAILY KELLEN Administration Objective: Vital Signs Period Temp Pulse Resp BP Sys/Garcia Pulse Ox Last 24 Hr 98.1 F-98.6 F 102-118 18-24 142-160/71-98 2-100 Physical Exam: General: NAD, A&Ox (2-3, self, place, time-knows 2017, thinks it is November) Lungs: Decreased breath sounds anteriorly Heart: Irregular, S1S2 Abd: Refused exam Ext: B/l lower extremity edema with venous changes CBCD WBC 10.8 K/mm3 (4.0-10.0) H D 10/10/17 05:40 RBC 4.79 M/mm3 (3.60-5.2) 10/10/17 05:40 Hgb 13.4 GM/dL (10.7-15.3) D 10/10/17 05:40 Hct 41.3 % (32.4-45.2) 10/10/17 05:40 MCV 86.2 fl (80-96) 10/10/17 05:40 MCHC 32.4 g/dl (32.0-36.0) 10/10/17 05:40 RDW 16.1 % (11.6-15.6) H 10/10/17 05:40 Plt Count 211 K/MM3 (134-434) 10/10/17 05:40 MPV 9.3 fl (7.5-11.1) 10/10/17 05:40 CMP Sodium 144 mmol/L (136-145) 10/10/17 05:40 Potassium 4.3 mmol/L (3.5-5.1) 10/10/17 05:40 Chloride 109 mmol/L (98-107) H 10/10/17 05:40 Carbon Dioxide 29 mmol/L (21-32) 10/10/17 05:40 Anion Gap 6 (8-16) L 10/10/17 05:40 BUN 24 mg/dL (7-18) H 10/10/17 05:40 Creatinine 0.6 mg/dL (0.55-1.02) 10/10/17 05:40 Creat Clearance w eGFR > 60 (>60) 10/10/17 05:40 Random Glucose 85 mg/dL (74-106) 10/10/17 05:40 Calcium 7.7 mg/dL (8.5-10.1) L 10/10/17 05:40 Total Bilirubin 0.9 mg/dL (0.2-1.0) 10/10/17 05:40 AST 101 U/L (15-37) H 10/10/17 05:40 ALT 28 U/L (12-78) 10/10/17 05:40 Alkaline Phosphatase 87 U/L (45-117) 10/10/17 05:40 Total Protein 5.5 g/dl (6.4-8.2) L 10/10/17 05:40 Albumin 2.7 g/dl (3.4-5.0) L 10/10/17 05:40 CARDIAC ENZYMES Creatine Kinase 502 IU/L (26-192) H 10/10/17 05:40 Troponin I < 0.02 ng/ml (0.00-0.05) 10/09/17 14:08 Assessment: This is an 81 year old female with PMHx of morbid obesity, cholecystectomy, thyroid surgery, who presented to the ED after being found on the floor of her apartment for 2 days. Plan: 1) Large right MCA territory infarct - CT head x2: possible diminished corticomedullary differentiation within the left frontoparietal lobe at the mid convexity level - Unable to perform MRI due to patient's body habitus - Continue ASA 81mg daily - Will hold off on anticoagulation at this time given how large infarct is - Carotid doppler: limited exam. Left internal and external carotid arteries could not be well visualized. The extracranial right carotid artery with no doppler evidence of high grade stenosis. Patent right vertebral artery. Left vertebral body could not be definitely visualized - ECHO: normal LV size and function. Left atrium is moderately dilated. Right atrium is moderately dilated. Moderate TR. RVSP is elevated. - F/u swallow evaluation - PT - Appreciate neuro consult - Appreciate cardiology consult 2) New onset a.fib - Ideally would need anticoagulation, however contraindicated now per neuro - Continuous cardiac monitoring - Continue cardizem 3) Rhabdomyolysis - Continue to monitor - Trending down - Hold statin until CPK wnl 4) Slightly dusky, cool toes - B/l lower extremity doppler negative for DVT - B/l lower extremity arterial duplex limited with no evidence of occlusions or hemodynamically significant stenoses - F/u vascular surgery consult 5) F/E/N: - Swallow eval per CVA protocol - Sodium controlled diet - Monitor electrolytes 6) Prophylaxis: - Hold all chemical anticoagulation at this time per neurology 7) Dispo: - Requires continued inpatient care CODE STATUS: FULL CODE
[2017-10-12] MEDS: dilTIAZem HCL 30 MG TABLET (FP) PO SCH ×2 (00:19→08:40)
--- NOTE | 2017-10-12 08:37 | PN ---
Progress Note (short form) - Note Progress Note: Subjective: The patient was seen and examined at the bedside, she has no complaints at this time Current Medications Generic Name Dose Route Start Last Admin Trade Name Chandrika PRN Reason Stop Dose Admin Aspirin 81 mg 10/10/17 10:00 10/11/17 10:05 Ecotrin - PO 81 mg DAILY KELLEN Administration Diltiazem HCl 180 mg 10/12/17 10:00 Cardizem Cd - PO DAILY KELLEN Lactic Acid 1 applic 10/09/17 23:44 10/10/17 11:06 Lac-Hydrin 12 TP 1 applic BID PRN Administration DRY SKIN Nystatin 1 applic 10/10/17 10:00 10/11/17 21:07 Mycostatin Cream - TP 1 applic BID KELLEN Administration Nystatin 1 applic 10/10/17 10:00 10/11/17 10:06 Nystop Powder - TP 1 applic DAILY KELLEN Administration Objective: Vital Signs Period Temp Pulse Resp BP Sys/Garcia Pulse Ox Last 24 Hr 98 F-98.5 F 84-96 18-31 131-157/58-83 96-98 Physical Exam: General: NAD, A&Ox3 Lungs: Decreased breath sounds anteriorly Heart: Irregular, S1S2 Abd: Soft, non-tender, non-distended. Normoactive bowel sounds Ext: B/l lower extremity edema with venous changes CBCD WBC 7.9 K/mm3 (4.0-10.0) 10/11/17 06:15 RBC 4.54 M/mm3 (3.60-5.2) 10/11/17 06:15 Hgb 12.5 GM/dL (10.7-15.3) 10/11/17 06:15 Hct 39.4 % (32.4-45.2) 10/11/17 06:15 MCV 86.8 fl (80-96) 10/11/17 06:15 MCHC 31.8 g/dl (32.0-36.0) L 10/11/17 06:15 RDW 16.0 % (11.6-15.6) H 10/11/17 06:15 Plt Count 195 K/MM3 (134-434) 10/11/17 06:15 MPV 9.4 fl (7.5-11.1) 10/11/17 06:15 CMP Sodium 143 mmol/L (136-145) 10/11/17 06:15 Potassium 3.9 mmol/L (3.5-5.1) 10/11/17 06:15 Chloride 106 mmol/L (98-107) 10/11/17 06:15 Carbon Dioxide 29 mmol/L (21-32) 10/11/17 06:15 Anion Gap 8 (8-16) 10/11/17 06:15 BUN 16 mg/dL (7-18) 10/11/17 06:15 Creatinine 0.5 mg/dL (0.55-1.02) L 10/11/17 06:15 Creat Clearance w eGFR > 60 (>60) 10/11/17 06:15 Random Glucose 92 mg/dL (74-106) 10/11/17 06:15 Calcium 7.5 mg/dL (8.5-10.1) L 10/11/17 06:15 Total Bilirubin 0.7 mg/dL (0.2-1.0) D 10/11/17 06:15 AST 75 U/L (15-37) H 10/11/17 06:15 ALT 21 U/L (12-78) 10/11/17 06:15 Alkaline Phosphatase 78 U/L (45-117) 10/11/17 06:15 Total Protein 5.2 g/dl (6.4-8.2) L 10/11/17 06:15 Albumin 2.4 g/dl (3.4-5.0) L 10/11/17 06:15 CARDIAC ENZYMES Creatine Kinase 502 IU/L (26-192) H 10/10/17 05:40 Troponin I < 0.02 ng/ml (0.00-0.05) 10/09/17 14:08 Assessment: This is an 81 year old female with PMHx of morbid obesity, cholecystectomy, thyroid surgery, who presented to the ED after being found on the floor of her apartment for 2 days. Plan: 1) Large right MCA territory infarct - CT head x2: possible diminished corticomedullary differentiation within the left frontoparietal lobe at the mid convexity level - Awaiting repeat head CT today - Unable to perform MRI due to patient's body habitus - Continue ASA 81mg daily - Awaiting clearance from neurology to start anticoagulation - Carotid doppler: limited exam. Left internal and external carotid arteries could not be well visualized. The extracranial right carotid artery with no doppler evidence of high grade stenosis. Patent right vertebral artery. Left vertebral body could not be definitely visualized - ECHO: normal LV size and function. Left atrium is moderately dilated. Right atrium is moderately dilated. Moderate TR. RVSP is elevated. - Swallow evaluation reviewed - PT - Appreciate neuro consult - Appreciate cardiology consult 2) New onset a.fib - Ideally would need anticoagulation, however neuro not recommending at this time - Continuous cardiac monitoring - Change cardizem to 180mg daily, with uptitration as needed 3) Rhabdomyolysis - Check level today - Hold statin until CPK wnl 4) Slightly dusky, cool toes - B/l lower extremity doppler negative for DVT - B/l lower extremity arterial duplex limited with no evidence of occlusions or hemodynamically significant stenoses - Appreciate vascular surgery consult 5) F/E/N: - Swallow eval reviewed - Sodium controlled diet - Monitor electrolytes 6) Prophylaxis: - Hold all chemical anticoagulation at this time per neurology 7) Dispo: - Requires continued inpatient care CODE STATUS: FULL CODE Visit type - Emergency Visit Emergency Visit: Yes ED Registration Date: 10/09/17 Care time: The patient presented to the Emergency Department on the above date and was hospitalized for further evaluation of their emergent condition. - New Patient This patient is new to me today: No - Critical Care Critical Care patient: No
[2017-10-12] MEDS: NYSTATIN 100,000 UNIT/GM TOPICAL CREAM 15 GM TUBE TP SCH ×2 (09:31→22:39)
[2017-10-12] MEDS: NYSTATIN POWDER 100,000 UNITS/GM - 15 GM TOPICAL POWDER TP SCH (09:31)
[2017-10-12] MEDS: ASPIRIN COATED 81 MG TABLET.EC PO SCH (09:31)
[2017-10-12] MEDS ORDERED: PT OWN MED DRAWER 7, Y5N ONE (22:29)
[2017-10-13 06:43] LABS: BASO % 0.7 % (0-2.0); EOS % 1.6 % (0-4.5); HEMATOCRIT 39.7 % (32.4-45.2); HEMOGLOBIN 12.8 GM/dL (10.7-15.3); MCH 27.9 pg (25.7-33.7); MCHC 32.3 g/dl (32.0-36.0); MEAN CELL VOLUME 86.4 fl (80-96); MEAN PLT VOLUME 9.1 fl (7.5-11.1); NEUT % 76.7 % (42.8-82.8); PLATELET COUNT 195 K/MM3 (134-434); RDW 15.5 % (11.6-15.6); WHITE BLOOD COUNT 7.4 K/mm3 (4.0-10.0)
[2017-10-13 07:06] LABS: ALBUMIN 2.4 g/dl (3.4-5.0); ANION GAP 6 (8-16); BLOOD UREA NITROGEN 9 mg/dL (7-18); CALCIUM 8.1 mg/dL (8.5-10.1); CHLORIDE 103 mmol/L (98-107); CO2 33 mmol/L (21-32); CREATININE 0.4 mg/dL (0.55-1.02); GLUCOSE,RANDOM 110 mg/dL (74-106); SGOT/AST 56 U/L (15-37); SODIUM 142 mmol/L (136-145)
[2017-10-13 07:13] LABS: ALK PHOS 75 U/L (45-117); BILIRUBIN,TOTAL 0.6 mg/dL (0.2-1.0); SGPT/ALT 19 U/L (12-78); TOT PROT 5.4 g/dl (6.4-8.2)
[2017-10-13] MEDS: NYSTATIN POWDER 100,000 UNITS/GM - 15 GM TOPICAL POWDER TP SCH (09:36)
[2017-10-13] MEDS: NYSTATIN 100,000 UNIT/GM TOPICAL CREAM 15 GM TUBE TP SCH ×2 (09:36→22:12)
[2017-10-13] MEDS: ASPIRIN COATED 81 MG TABLET.EC PO SCH (09:36)
--- NOTE | 2017-10-13 15:39 | PN ---
Progress Note (short form) - Note Progress Note: Subjective: The patient was seen and examined at the bedside, she has no complaints at this time Current Medications Generic Name Dose Route Start Last Admin Trade Name Chandrika PRN Reason Stop Dose Admin Aspirin 81 mg 10/10/17 10:00 10/13/17 09:36 Ecotrin - PO 81 mg DAILY KELLEN Administration Diltiazem HCl 180 mg 10/12/17 10:00 10/13/17 09:36 Cardizem Cd - PO 180 mg DAILY KELLEN Administration Lactic Acid 1 applic 10/09/17 23:44 10/10/17 11:06 Lac-Hydrin 12 TP 1 applic BID PRN Administration DRY SKIN Nystatin 1 applic 10/10/17 10:00 10/13/17 09:36 Mycostatin Cream - TP 1 applic BID KELLEN Administration Nystatin 1 applic 10/10/17 10:00 10/13/17 09:36 Nystop Powder - TP 1 applic DAILY KELLEN Administration Objective: Vital Signs Period Temp Pulse Resp BP Sys/Garcia Pulse Ox Last 24 Hr 97.7 F-98.2 F 80-99 18-22 111-172/72-83 91-92 Physical Exam: General: NAD, A&Ox3 Lungs: Decreased breath sounds anteriorly Heart: Irregular, S1S2 Abd: Soft, non-tender, non-distended. Normoactive bowel sounds Ext: B/l lower extremity edema with venous changes CBCD WBC 7.4 K/mm3 (4.0-10.0) 10/13/17 05:10 RBC 4.60 M/mm3 (3.60-5.2) 10/13/17 05:10 Hgb 12.8 GM/dL (10.7-15.3) 10/13/17 05:10 Hct 39.7 % (32.4-45.2) 10/13/17 05:10 MCV 86.4 fl (80-96) 10/13/17 05:10 MCHC 32.3 g/dl (32.0-36.0) 10/13/17 05:10 RDW 15.5 % (11.6-15.6) 10/13/17 05:10 Plt Count 195 K/MM3 (134-434) 10/13/17 05:10 MPV 9.1 fl (7.5-11.1) 10/13/17 05:10 CMP Sodium 142 mmol/L (136-145) 10/13/17 05:10 Potassium 4.0 mmol/L (3.5-5.1) 10/13/17 05:10 Chloride 103 mmol/L (98-107) 10/13/17 05:10 Carbon Dioxide 33 mmol/L (21-32) H 10/13/17 05:10 Anion Gap 6 (8-16) L 10/13/17 05:10 BUN 9 mg/dL (7-18) 10/13/17 05:10 Creatinine 0.4 mg/dL (0.55-1.02) L 10/13/17 05:10 Creat Clearance w eGFR > 60 (>60) 10/13/17 05:10 Random Glucose 110 mg/dL (74-106) H 10/13/17 05:10 Calcium 8.1 mg/dL (8.5-10.1) L 10/13/17 05:10 Total Bilirubin 0.6 mg/dL (0.2-1.0) 10/13/17 05:10 AST 56 U/L (15-37) H 10/13/17 05:10 ALT 19 U/L (12-78) 10/13/17 05:10 Alkaline Phosphatase 75 U/L (45-117) 10/13/17 05:10 Total Protein 5.4 g/dl (6.4-8.2) L 10/13/17 05:10 Albumin 2.4 g/dl (3.4-5.0) L 10/13/17 05:10 CARDIAC ENZYMES Creatine Kinase 76 IU/L (26-192) 10/12/17 09:17 Troponin I < 0.02 ng/ml (0.00-0.05) 10/09/17 14:08 Assessment: This is an 81 year old female with PMHx of morbid obesity, cholecystectomy, thyroid surgery, who presented to the ED after being found on the floor of her apartment for 2 days. Plan: 1) Large right MCA territory infarct - CT head x2: possible diminished corticomedullary differentiation within the left frontoparietal lobe at the mid convexity level - Head CT yesterday, awaiting read - Unable to perform MRI due to patient's body habitus - Continue ASA 81mg daily - Awaiting clearance from neurology to start anticoagulation - Carotid doppler: limited exam. Left internal and external carotid arteries could not be well visualized. The extracranial right carotid artery with no doppler evidence of high grade stenosis. Patent right vertebral artery. Left vertebral body could not be definitely visualized - ECHO: normal LV size and function. Left atrium is moderately dilated. Right atrium is moderately dilated. Moderate TR. RVSP is elevated. - Swallow evaluation reviewed - PT - Appreciate neuro consult - Appreciate cardiology consult 2) New onset a.fib - Ideally would need anticoagulation, however neuro not recommending at this time - Continuous cardiac monitoring - Continue cardizem to 180mg daily, with uptitration as needed 3) Rhabdomyolysis - Resolved 4) Slightly dusky, cool toes - B/l lower extremity doppler negative for DVT - B/l lower extremity arterial duplex limited with no evidence of occlusions or hemodynamically significant stenoses - Appreciate vascular surgery consult 5) F/E/N: - Swallow eval reviewed - Sodium controlled diet - Monitor electrolytes 6) Prophylaxis: - Hold all chemical anticoagulation at this time per neurology 7) Dispo: - Requires continued inpatient care CODE STATUS: FULL CODE Visit type - Emergency Visit Emergency Visit: Yes ED Registration Date: 10/09/17 Care time: The patient presented to the Emergency Department on the above date and was hospitalized for further evaluation of their emergent condition. - New Patient This patient is new to me today: No - Critical Care Critical Care patient: No
[2017-10-14 06:49] LABS: ALBUMIN 2.3 g/dl (3.4-5.0); ALK PHOS 76 U/L (45-117); ANION GAP 6 (8-16); BILIRUBIN,TOTAL 0.8 mg/dL (0.2-1.0); BLOOD UREA NITROGEN 8 mg/dL (7-18); CALCIUM 7.4 mg/dL (8.5-10.1); CHLORIDE 100 mmol/L (98-107); CO2 32 mmol/L (21-32); CREATININE 0.5 mg/dL (0.55-1.02); GLUCOSE,RANDOM 105 mg/dL (74-106); POTASSIUM 3.9 mmol/L (3.5-5.1); SGOT/AST 50 U/L (15-37); SGPT/ALT 20 U/L (12-78); SODIUM 138 mmol/L (136-145); TOT PROT 5.4 g/dl (6.4-8.2)
[2017-10-14 06:55] LABS: BASO % 0.6 % (0-2.0); HEMATOCRIT 39.4 % (32.4-45.2); HEMOGLOBIN 12.9 GM/dL (10.7-15.3); LYMPH % 10.4 % (8-40); MCHC 32.9 g/dl (32.0-36.0); MEAN CELL VOLUME 85.3 fl (80-96); MEAN PLT VOLUME 9.1 fl (7.5-11.1); MONO % 9.3 % (3.8-10.2); NEUT % 78.7 % (42.8-82.8); PLATELET COUNT 196 K/MM3 (134-434); RBC 4.62 M/mm3 (3.60-5.2); RDW 15.4 % (11.6-15.6); WHITE BLOOD COUNT 10.6 K/mm3 (4.0-10.0)
[2017-10-14] MEDS ORDERED: PT OWN MED DRAWER 7, Y5N ONE (08:55)
[2017-10-14] MEDS: ACETAMINOPHEN 325 MG TABLET (FP) PO PRN (09:00)
[2017-10-14] MEDS: ASPIRIN COATED 81 MG TABLET.EC PO SCH (09:00)
[2017-10-14] MEDS: NYSTATIN POWDER 100,000 UNITS/GM - 15 GM TOPICAL POWDER TP SCH (09:01)
[2017-10-14] MEDS: NYSTATIN 100,000 UNIT/GM TOPICAL CREAM 15 GM TUBE TP SCH ×2 (09:02→21:32)
--- NOTE | 2017-10-14 17:18 | PN ---
Progress Note, OPERATING ROOM TECHNICIAN - Note Progress Note: 81 year old female seen as a follow up to swallow eval by OPERATING ROOM TECHNICIAN River Dick. install technician reported that pt was coughing during breakfast. Current diet: soft solids and thin liquids. Pt given po trials of pureed, soft and thin liquids without assistance revealed good acceptance, bolus formation and A-P transport is adequate. Pharyngeal swallow appears timely. No cough or changes in voicing or respiration at this time. Recommendation continue soft solids and thin liquids as tolerated. Observe standard aspiration precautions. slow rate of intake. Solids shoudl be presented in small bite sized pieces. Results given verbally to dry charge process attendant Patty and to pcp via chart. OPERATING ROOM TECHNICIAN to follow up.
--- NOTE | 2017-10-14 20:29 | PN ---
Physical Exam: SUBJECTIVE: Patient seen and examined in tele/ICU. Denies chest pain or discomfort OBJECTIVE: Vital Signs Period Temp Pulse Resp BP Sys/Garcia Pulse Ox Last 24 Hr 98.4 F-98.9 F 85-105 20-22 130-156/55-91 92-99 GENERAL: The patient is awake, alert, and fully oriented, in no acute distress. HEAD: Normal with no signs of trauma. EYES: PERRL, extraocular movements intact, sclera anicteric, conjunctiva clear. No ptosis. ENT: Ears normal, nares patent, oropharynx clear without exudates, moist mucous membranes. NECK: Trachea midline, full range of motion, supple. LUNGS: Breath sounds equal, clear to auscultation bilaterally ABDOMEN: large obese abdomen, + bowel sounds EXTREMITIES: 2+ pulses, warm, well-perfused, no edema. NEUROLOGICAL: normal speech, gait not observed. PSYCH: Normal mood, normal affect. SKIN: Warm, dry, normal turgor, no rashes or lesions noted Laboratory Results - last 24 hr 10/14/17 10/14/17 05:33 05:33 WBC 10.6 H D RBC 4.62 Hgb 12.9 Hct 39.4 MCV 85.3 MCH 28.0 MCHC 32.9 RDW 15.4 Plt Count 196 MPV 9.1 Neutrophils % 78.7 Lymphocytes % 10.4 Monocytes % 9.3 Eosinophils % 1.0 Basophils % 0.6 Sodium 138 Potassium 3.9 Chloride 100 Carbon Dioxide 32 Anion Gap 6 L BUN 8 Creatinine 0.5 L Creat Clearance w eGFR > 60 Random Glucose 105 Calcium 7.4 L Total Bilirubin 0.8 D AST 50 H ALT 20 Alkaline Phosphatase 76 Total Protein 5.4 L Albumin 2.3 L Active Medications Generic Name Dose Route Start Last Admin Trade Name Freq PRN Reason Stop Dose Admin Acetaminophen 650 mg 10/14/17 08:48 10/14/17 09:00 Tylenol - PO 650 mg Q6H PRN Administration headache/pain Aspirin 81 mg 10/10/17 10:00 10/14/17 09:00 Ecotrin - PO 81 mg DAILY KELLEN Administration Diltiazem HCl 180 mg 10/12/17 10:00 10/14/17 09:00 Cardizem Cd - PO 180 mg DAILY KELLEN Administration Lactic Acid 1 applic 10/09/17 23:44 10/10/17 11:06 Lac-Hydrin 12 TP 1 applic BID PRN Administration DRY SKIN Nystatin 1 applic 10/10/17 10:00 10/14/17 09:02 Mycostatin Cream - TP 1 applic BID KELLEN Administration Nystatin 1 applic 10/10/17 10:00 10/14/17 09:01 Nystop Powder - TP 1 applic DAILY KELLEN Administration ASSESSMENT/PLAN: Patient is an 81 year old female with a significant past medical history of morbid obestity, cholecystectomy and thyroid surgery. She presents to the ED after being found on the floor in her apartment for approximately 2 days. Imaging: CT head: possible diminished corticomedullary differentiation within the left frontoparietal lobe at the mid convexity level Carotid doppler: Left internal and external carotid arteries could not be well visualized. The extracranial right carotid artery with no Doppler evidence of high grade stenosis. Echo: normal LV size and function. Left atrium is moderately dilated. Right atrium is moderately dilated. Moderate TR Neuro: Syncope with fall/Stroke Found to have a large right MCA territory infarct on admission Brain MRI unable to be done due to weight limits of study On ASA 81mg daily Lipitor 10mg daily Swallow eval as per protocol Monitor neuro status Physical therapy evaluation Neuro following Cardiology New onset afib May need anticoaguation, however fall risk patient Anticoaguation once cleared by neuro On Cardizem 180 mg daily Monior on tele Renal Rhabdomyolysis, now resolved Vascular Cool dusky toes, improving Vascular notes reviewed No DVT seen on doppler Visit type - Emergency Visit Emergency Visit: Yes ED Registration Date: 10/09/17 Care time: The patient presented to the Emergency Department on the above date and was hospitalized for further evaluation of their emergent condition. - New Patient This patient is new to me today: Yes Date on this admission: 10/14/17 - Critical Care Critical Care patient: No - Discharge Referral Referred to [facility] No
[2017-10-15] MEDS: ACETAMINOPHEN 325 MG TABLET (FP) PO PRN (05:59)
[2017-10-15 07:02] LABS: ALBUMIN 2.3 g/dl (3.4-5.0); ANION GAP 6 (8-16); CALCIUM 8.1 mg/dL (8.5-10.1); CHLORIDE 100 mmol/L (98-107); CO2 35 mmol/L (21-32); POTASSIUM 3.8 mmol/L (3.5-5.1); SODIUM 141 mmol/L (136-145)
[2017-10-15 07:08] LABS: ALK PHOS 76 U/L (45-117); BILIRUBIN,TOTAL 0.6 mg/dL (0.2-1.0); BLOOD UREA NITROGEN 10 mg/dL (7-18); CREATININE 0.6 mg/dL (0.55-1.02); GLUCOSE,RANDOM 103 mg/dL (74-106); SGOT/AST 43 U/L (15-37); SGPT/ALT 19 U/L (12-78); TOT PROT 5.6 g/dl (6.4-8.2)
[2017-10-15 08:06] LABS: BASO % 0.5 % (0-2.0); EOS % 2.1 % (0-4.5); HEMATOCRIT 39.8 % (32.4-45.2); HEMOGLOBIN 12.5 GM/dL (10.7-15.3); LYMPH % 11.5 % (8-40); MCH 27.2 pg (25.7-33.7); MCHC 31.5 g/dl (32.0-36.0); MEAN CELL VOLUME 86.3 fl (80-96); MEAN PLT VOLUME 8.8 fl (7.5-11.1); MONO % 10.6 % (3.8-10.2); NEUT % 75.3 % (42.8-82.8); PLATELET COUNT 190 K/MM3 (134-434); RBC 4.61 M/mm3 (3.60-5.2); RDW 15.3 % (11.6-15.6); WHITE BLOOD COUNT 6.8 K/mm3 (4.0-10.0)
[2017-10-15] MEDS: NYSTATIN POWDER 100,000 UNITS/GM - 15 GM TOPICAL POWDER TP SCH (09:26)
[2017-10-15] MEDS: ASPIRIN COATED 81 MG TABLET.EC PO SCH (09:26)
[2017-10-15] MEDS: NYSTATIN 100,000 UNIT/GM TOPICAL CREAM 15 GM TUBE TP SCH ×2 (09:26→21:01)
--- NOTE | 2017-10-15 17:48 | PN ---
Physical Exam: SUBJECTIVE: Patient seen and examined in tele ICU. She feels great. No pain. No headaches. OBJECTIVE: Discharge planning, patient wants to go to rehab Awaiting final decision on anticoagulation per neuro before discharge Patient reports feeling weak when trying to get OOB with physical therapy Vital Signs Period Temp Pulse Resp BP Sys/Garcia Pulse Ox Last 24 Hr 98 F-98.6 F 88-94 20-22 124-157/55-97 97-97 GENERAL: The patient is awake, alert, and fully oriented, in no acute distress. HEAD: Normal with no signs of trauma. EYES: PERRL, extraocular movements intact, sclera anicteric, conjunctiva clear. No ptosis. ENT: Ears normal, nares patent, oropharynx clear without exudates, moist mucous membranes. NECK: Trachea midline, full range of motion, supple. LUNGS: Breath sounds equal, clear to auscultation bilaterally ABDOMEN: large obese abdomen, + bowel sounds EXTREMITIES: 2+ pulses, warm, well-perfused, no edema. NEUROLOGICAL: normal speech, gait not observed. PSYCH: Normal mood, normal affect. SKIN: Warm, dry, normal turgor, no rashes or lesions noted Laboratory Results - last 24 hr 10/15/17 10/15/17 06:00 06:00 WBC 6.8 D RBC 4.61 Hgb 12.5 Hct 39.8 MCV 86.3 MCH 27.2 MCHC 31.5 L RDW 15.3 Plt Count 190 MPV 8.8 Neutrophils % 75.3 Lymphocytes % 11.5 Monocytes % 10.6 H Eosinophils % 2.1 D Basophils % 0.5 Sodium 141 Potassium 3.8 Chloride 100 Carbon Dioxide 35 H Anion Gap 6 L BUN 10 Creatinine 0.6 Creat Clearance w eGFR > 60 Random Glucose 103 Calcium 8.1 L Magnesium 2.0 Total Bilirubin 0.6 D AST 43 H ALT 19 Alkaline Phosphatase 76 Total Protein 5.6 L Albumin 2.3 L Active Medications Generic Name Dose Route Start Last Admin Trade Name Freq PRN Reason Stop Dose Admin Acetaminophen 650 mg 10/14/17 08:48 10/15/17 05:59 Tylenol - PO 650 mg Q6H PRN Administration headache/pain Aspirin 81 mg 10/10/17 10:00 10/15/17 09:26 Ecotrin - PO 81 mg DAILY KELLEN Administration Atorvastatin Calcium 10 mg 10/15/17 22:00 Lipitor - PO HS KELLEN Diltiazem HCl 180 mg 10/12/17 10:00 10/15/17 09:26 Cardizem Cd - PO 180 mg DAILY KELLEN Administration Lactic Acid 1 applic 10/09/17 23:44 10/10/17 11:06 Lac-Hydrin 12 TP 1 applic BID PRN Administration DRY SKIN Nystatin 1 applic 10/10/17 10:00 10/15/17 09:26 Mycostatin Cream - TP 1 applic BID KELLEN Administration Nystatin 1 applic 10/10/17 10:00 10/15/17 09:26 Nystop Powder - TP 1 applic DAILY KELLEN Administration ASSESSMENT/PLAN:
[2017-10-15] MEDS ORDERED: PT OWN MED DRAWER 7, Y5N ONE (20:50)
[2017-10-15] MEDS ORDERED: ATORVASTATIN CA 10 MG TABLET (FP) PO SCH (22:00)
[2017-10-16] MEDS: ASPIRIN COATED 81 MG TABLET.EC PO SCH (09:47)
[2017-10-16] MEDS: NYSTATIN POWDER 100,000 UNITS/GM - 15 GM TOPICAL POWDER TP SCH (09:48)
[2017-10-16] MEDS: NYSTATIN 100,000 UNIT/GM TOPICAL CREAM 15 GM TUBE TP SCH (09:48)
--- NOTE | 2017-10-16 14:02 | PN ---
Progress Note (short form) - Note Progress Note: Subjective: The patient was seen and examined at the bedside, she has no complaints at this time Current Medications Generic Name Dose Route Start Last Admin Trade Name Chandrika PRN Reason Stop Dose Admin Acetaminophen 650 mg 10/14/17 08:48 10/15/17 05:59 Tylenol - PO 650 mg Q6H PRN Administration headache/pain Aspirin 81 mg 10/10/17 10:00 10/16/17 09:47 Ecotrin - PO 81 mg DAILY KELLEN Administration Atorvastatin Calcium 10 mg 10/15/17 22:00 10/15/17 21:00 Lipitor - PO 10 mg HS KELLEN Administration Diltiazem HCl 180 mg 10/12/17 10:00 10/16/17 09:47 Cardizem Cd - PO 180 mg DAILY KELLEN Administration Lactic Acid 1 applic 10/09/17 23:44 10/10/17 11:06 Lac-Hydrin 12 TP 1 applic BID PRN Administration DRY SKIN Nystatin 1 applic 10/10/17 10:00 10/16/17 09:48 Mycostatin Cream - TP 1 applic BID KELLEN Administration Nystatin 1 applic 10/10/17 10:00 10/16/17 09:48 Nystop Powder - TP 1 applic DAILY KELLEN Administration Objective: Vital Signs Period Temp Pulse Resp BP Sys/Garcia Pulse Ox Last 24 Hr 98 F-98.5 F 85-96 18-26 141-170/55-89 97-99 Physical Exam: General: NAD, A&Ox3 Lungs: Decreased breath sounds anteriorly Heart: Irregular, S1S2 Abd: Soft, non-tender, non-distended. Normoactive bowel sounds Ext: B/l lower extremity edema with venous changes CBCD WBC 6.8 K/mm3 (4.0-10.0) D 10/15/17 06:00 RBC 4.61 M/mm3 (3.60-5.2) 10/15/17 06:00 Hgb 12.5 GM/dL (10.7-15.3) 10/15/17 06:00 Hct 39.8 % (32.4-45.2) 10/15/17 06:00 MCV 86.3 fl (80-96) 10/15/17 06:00 MCHC 31.5 g/dl (32.0-36.0) L 10/15/17 06:00 RDW 15.3 % (11.6-15.6) 10/15/17 06:00 Plt Count 190 K/MM3 (134-434) 10/15/17 06:00 MPV 8.8 fl (7.5-11.1) 10/15/17 06:00 CMP Sodium 141 mmol/L (136-145) 10/15/17 06:00 Potassium 3.8 mmol/L (3.5-5.1) 10/15/17 06:00 Chloride 100 mmol/L (98-107) 10/15/17 06:00 Carbon Dioxide 35 mmol/L (21-32) H 10/15/17 06:00 Anion Gap 6 (8-16) L 10/15/17 06:00 BUN 10 mg/dL (7-18) 10/15/17 06:00 Creatinine 0.6 mg/dL (0.55-1.02) 10/15/17 06:00 Creat Clearance w eGFR > 60 (>60) 10/15/17 06:00 Random Glucose 103 mg/dL (74-106) 10/15/17 06:00 Calcium 8.1 mg/dL (8.5-10.1) L 10/15/17 06:00 Total Bilirubin 0.6 mg/dL (0.2-1.0) D 10/15/17 06:00 AST 43 U/L (15-37) H 10/15/17 06:00 ALT 19 U/L (12-78) 10/15/17 06:00 Alkaline Phosphatase 76 U/L (45-117) 10/15/17 06:00 Total Protein 5.6 g/dl (6.4-8.2) L 10/15/17 06:00 Albumin 2.3 g/dl (3.4-5.0) L 10/15/17 06:00 CARDIAC ENZYMES Creatine Kinase 76 IU/L (26-192) 10/12/17 09:17 Troponin I < 0.02 ng/ml (0.00-0.05) 10/09/17 14:08 Assessment: This is an 81 year old female with PMHx of morbid obesity, cholecystectomy, thyroid surgery, who presented to the ED after being found on the floor of her apartment for 2 days. Plan: 1) Large right MCA territory infarct - CT head x2: possible diminished corticomedullary differentiation within the left frontoparietal lobe at the mid convexity level - Head CT 10/12 with no definite interval change - Unable to perform MRI due to patient's body habitus - Continue ASA 81mg daily - Discussed with Dr. Jeffries today, ok to start anticoagulation, will evaluate the patient today - Discussed with Dr. Navarro who recommends starting Eliquis - Carotid doppler: limited exam. Left internal and external carotid arteries could not be well visualized. The extracranial right carotid artery with no doppler evidence of high grade stenosis. Patent right vertebral artery. Left vertebral body could not be definitely visualized - ECHO: normal LV size and function. Left atrium is moderately dilated. Right atrium is moderately dilated. Moderate TR. RVSP is elevated. - Swallow evaluation reviewed - PT - Appreciate neuro consult - Appreciate cardiology consult 2) New onset a.fib - Per neuro, ok to start anticoagulation today - Continue cardizem to 180mg daily, with uptitration as needed 3) Rhabdomyolysis - Resolved 4) Slightly dusky, cool toes - Resolved - B/l lower extremity doppler negative for DVT - B/l lower extremity arterial duplex limited with no evidence of occlusions or hemodynamically significant stenoses - Appreciate vascular surgery consult 5) F/E/N: - Swallow eval reviewed - Sodium controlled diet - Monitor electrolytes 6) Prophylaxis: - Will start full anticoagulation today 7) Dispo: - Requires continued inpatient care CODE STATUS: FULL CODE Visit type - Emergency Visit Emergency Visit: Yes ED Registration Date: 10/09/17 Care time: The patient presented to the Emergency Department on the above date and was hospitalized for further evaluation of their emergent condition. - New Patient This patient is new to me today: No - Critical Care Critical Care patient: No
[2017-10-16] MEDS: ACETAMINOPHEN 325 MG TABLET (FP) PO PRN (15:45)
--- NOTE | 2017-10-16 17:42 | DS ---
Physical Examination Vital Signs: Vital Signs Temperature 98.4 F 10/16/17 13:42 Pulse Rate 96 H 10/16/17 13:42 Respiratory Rate 26 H 10/16/17 13:42 Blood Pressure 141/75 10/16/17 13:42 O2 Sat by Pulse Oximetry (%) 99 10/16/17 09:00 Labs: CBC, BMP 10/15/17 06:00 10/15/17 06:00 Discharge Summary Reason For Visit: NEW ONSET AFIB Condition: Improved - Instructions Diet, Activity, Other Instructions: Please return to the ED with new, persistent, or worsening symptoms. Please follow-up with providers as indicated. Please follow-up with your primary care provider within 2-3 days. Referrals: Brenden Shi DO [Staff Physician] - (Please follow-up with neurology within 1 week for further management of your acute stroke) Aron Navarro MD [Staff Physician] - (Please follow-up with cardiology within 1 week for further management of your a.fib) Disposition: LONGTERM FACILITY - Home Medications Comprehensive Discharge Medication List: Ambulatory Orders Acetaminophen [Tylenol .Regular Strength -] 650 mg PO Q6H PRN tablet 10/16/17 Ammonium Lactate Lotion [Lac-Hydrin 12] 1 applic TP BID PRN bottle 10/16/17 Apixaban [Eliquis] 5 mg PO BID #60 tablet 10/16/17 Atorvastatin Ca [Lipitor] 10 mg PO HS tablet 10/16/17 Diltiazem Cd [Cardizem Cd -] 180 mg PO DAILY cap.cd.24h 10/16/17 Nystatin Powder [Nystop Powder -] 1 applic TP DAILY applic 10/16/17 - Discharge Referral Referred to [facility] No
--- NOTE | 2017-10-16 18:07 | PN ---
Progress Note (short form) - Note Progress Note: Ms. Tan today has a more prominent aphasia with fluent speech, impaired comprehernsion and paraphasic errors. She denies back pain, has urinary incontinence and 1/5 weakness in both legs. Would hold a/c for now given evolving, now clinically large right MCA territory infarct.+ bilateral dorsalis pedis pulses. -Await CT C/T spine-no explanation for paraparesis?/ ant. spinal artery occlusion. Pt. has no new complaints today, remains with 2/5 weakness in both legs. Repeatr CT head on 10/12 without evid. of petechial hge. Given repeat CT head appearnace it is reasonably safe to place pt. on a/c at this time. I will see her for f/u in my office. Thank you. Eliel Jeffries MD
[2017-10-16 19:30] VITALS: BP 152/75
[2017-10-16 20:21] VITALS: PULSE 94; TEMP 98.5
== END 2017-10-16 19:59 | DRG 65 ==
LOC: JER 09:43 → JERBED 13:54 → J2W 22:04
PROVIDERS: ADMIT Internal Medicine; ATTEND Registered Nurse
DX: I63.519 Cerebral infarction due to unspecified occlusion or stenosis of unspecified middle cerebral artery (principal); M62.82 Rhabdomyolysis; Z68.42 Body mass index [BMI] 45.0-49.9, adult; G95.9 Disease of spinal cord, unspecified; G82.20 Paraplegia, unspecified; I48.91 Unspecified atrial fibrillation; I69.320 Aphasia following cerebral infarction; E66.01 Morbid (severe) obesity due to excess calories; R00.0 Tachycardia, unspecified; R51 Headache; L89.322 Pressure ulcer of left buttock, stage 2; L89.312 Pressure ulcer of right buttock, stage 2; R55 Syncope and collapse; D72.829 Elevated white blood cell count, unspecified; M50.20 Other cervical disc displacement, unspecified cervical region; R32 Unspecified urinary incontinence
CPT/HCPCS: 36415; 36600; 70450-TC; 71045-TC-FY; 72125-TC; 72128-TC; 73523-TC-FY; 80053; 80061; 82550; 82553; 82803; 83605; 83721; 83735; 84100; 84484; 85025; 85027; 85610; 93005; 93010; 93306-TC; 93880-TC; 93925-TC; 93970-TC; 97116-GP; 97162-GP; 99285-25